=== PATIENT | male | born 1985 | race Caucasian/White ===

== ENCOUNTER 2020-08-03 07:56 | Day surgery (SDC) | payer OTHER, SELFPAY ==
[2020-07-20 12:21] VITALS: BMI 29.0
[2020-08-03] VITALS (10 sets, daily range): BP systolic 115–135; BP diastolic 60–88; PULSE 77–100; RESP 16; TEMP 36.6–37.3; O2SAT 92–99; BMI 28.1
--- NOTE | 2020-08-03 07:00 | HP_ITS ---
Intake Vital Signs 07/20/20 Height 5 ft 11 in 07/20/20 Weight: 208 lb 07/20/20 BMI 29.0 07/20/20 BP 122/83 H 07/20/20 Blood Pressure Location Rt brachial 07/20/20 Position Sitting 07/20/20 Respiration 14 07/20/20 Pulse 98 07/20/20 Pulse Source Monitor 07/20/20 Temp 98.4 F 07/20/20 Temp Source Temporal 07/20/20 Pulse Oximetry (%) 100 07/20/20 Oxygen Delivery Method room air Intake Visit Reasons: Hernia [employer] Required: No Is patient in pain?: No (on and off- Right inguinal area) Allergies Penicillins Allergy (Intermediate, Verified 07/20/20 12:23) breathing Medications NK 07/20/20 [History Confirmed 07/20/20] PFSH Medical History Abdominal pain (Acute) Nausea (Acute) Right lower quadrant pain (Acute) Reducible inguinal hernia (Acute) Pruritic dermatitis (Acute) Poison vivian dermatitis (Acute) Surgical History [place] teeth extracted (Acute) Family History Other Cancer Hypertension Social History (Updated 07/20/20 @ 12:[address] Freddie Myles MD) Smoking Status: Never smoker second hand exposure: No alcohol intake: never substance use type: does not use well-balanced diet: about half the time caffeine: Yes during the past year weight has: remained stable what type of physical activity do you participate in: bicycling, weight training frequency: 5-6 times per week duration: 45-60 minutes/day HPI HPI HPI: LETHA GUEVARA, is a 35 M who presents to the office today for HPI HPI Surgical H&P: Yes HPI: LETHA GUEVARA, is a 35 M who presents to the office today for right groin bulging. The patient notes that he has had right groin bulging and discomfort especially with working out. The patient reports is been there for several months but is starting to get worse. The patient is not having any symptoms on the opposite side. He denies any nausea or vomiting. He has no fevers or chills or radiation of pain. ROS General General: No weight change, appetite, fatigue, colon cancer, breast cancer or weakness HEENT HEENT: No difficulty swallowing, eye injury, eye surgery, swollen glands or hoarseness Endo Endocrine: No thyroid disease, diabetes mellitus, thyroid cancer, Hair loss, heat intolerance or cold intolerance Skin Skin: No rash or changing moles Breast Breast: No left breast lump, right breast lump, nipple discharge, breast pain, abnormal mammogram, abnormal US or breast enlargement Musc Musculoskeletal: No back problems, arthritis, rheumatoid arthritis, gout or joint pain Cardio Cardiovascular: No murmur, pacemaker, heart disease, atrial fibrillation, high blood pressure, heart attack, heart stent, palpitations, shortness of breat with exertion or chest pain Psych Psychiatric: No depression, anxiety or hearing voices Resp Respiratory: No shortness of breath, No sleep apnea, No cough, No COPD, No asthma, No emphysema, No wheezing Gastro Gastrointestinal: Yes abdominal pain, Yes nausea or vomiting, No diarrhea, No constipation, No blood in stool, No acid reflux, No hemorrhoids, No ulcers, No gallbladder problem, No black,tarry stools Srinivasa Hematologic: No blood thinners, No blood disorders, No bleeding, No anemia, No blood clots Neuro Neurologic: No system reviewed and no additional complaints, except as docu, No as per HPI, No abnormal walking, No abnormal hearing, No abnormal movements, No abnormal speech, No behavioral changes, No burning sensations, No confusion, No seizure-like activity, No unsteadiness, No dizziness, No localized weakness, No frequent falls, No headache(s), No lack of coordination, No loss of vision, No memory loss, No numbness, No other visual disturbances, No radiating pain, No restless legs, No sensory deficit, No fainting, No tingling, No tremor(s), No weakness, No other Exam Const General: cooperative Orientation: alert, oriented x3 Chest Breast Palpation: No nipple discharge Resp Effort & Inspection: normal respiratory effort Auscultation: clear to auscultation bilaterally Cardio Rate: regular rate Rhythm: regular rhythm Heart Sounds: no murmurs GI Inspection: non-distended Palpation: soft, hernia indirect inguinal on the right, nontender Assessment & Plan Problems 1. Right inguinal hernia K40.90 Plan The patient has a reducible right inguinal hernia. I was not able to palpate a hernia on the opposite side. I discussed conservative treatment versus surgical treatment and I discussed open versus laparoscopic repair with him in detail. I discussed the risks of the procedure including not limited to bleeding, infection, injury to underlying bowel or spermatic cord, chronic groin pain, hernia recurrence and mesh placement. The patient had all of his questions answered and decided on a robotic assisted laparoscopic right inguinal hernia repair with mesh. The patient would like contralateral hernia fixed if it is present. Freddie Myles MD Pager: [facility] [address] [place] [address], [address] [place] [address] Office: Coding Level of Care Code Off vis,new,level 3 Diagnoses Right inguinal hernia K40.90 I have re-examined the patient. There are no clinical changes since date of exam.
[2020-08-03] MEDS: Lactated Ringers 1,000 ML 100 ML IV ×2 (08:46→11:15)
[2020-08-03] MEDS: Bupivacaine Mpf 0.5% 30 ML VIAL (11:20)
--- NOTE | 2020-08-03 11:27 | PCM.OPRPT ---
Problem List (1) Bilateral inguinal hernia Status: Acute Qualifiers: Obstruction and gangrene presence: without obstruction or gangrene Recurrence: non-recurrent Qualified Code(s): K40.20 - Bilateral inguinal hernia, without obstruction or gangrene, not specified as recurrent Report of Operation Date of Procedure: 08/03/20 Pre-Operative Diagnosis: Right inguinal hernia Post-Operative Diagnosis: Bilateral direct inguinal hernias Surgery/Procedure Performed:: Robotic assisted laparoscopic bilateral inguinal hernia repair with mesh Specimen's removed: None Description of Procedure: Patient was brought back to the operating room and general anesthesia was induced. The abdomen was prepped and draped in usual sterile fashion. A midline incision was made superior to the umbilicus and the fascia was grasped and elevated. A Veress needle was placed into the abdomen and a drop test was performed. The abdomen was insufflated to 15 mmHg. The needle was removed and a port was placed into the abdomen. The camera was placed inside and there were no injuries from entry. The inguinal areas were inspected and the patient had bilateral direct inguinal hernias. Next under direct visualization an 8 mm port was placed in the right abdominal sidewall as well as left abdominal sidewall. The patient was placed in Trendelenburg position and the robot was docked. An incision was made in the peritoneum using electrocautery scissors and the dissection was carried inferiorly until the hernia sac was identified and reduced. There was no indirect hernia or lipoma of the cord evident. The dissection was carried posteriorly until there was good overlap from the hernia. Next a progrip mesh was trimmed and placed into the right groin. It was unfolded over the hernia allowing for good overlap. The peritoneum was reapproximated using a running 3-0V lock suture. The peritoneum completely cover the mesh. Next attention was paid to the left inguinal region. In the same fashion an incision was made in the peritoneum in this was dissected inferiorly until the hernia sac was reduced and peritoneum was fully mobilized. The dissection was carried inferiorly and then a piece of ProGrip mesh was trimmed and placed in the left inguinal region. It was sutured to the pubic tubercle using 3-0 Vicryl suture. The peritoneum was then reapproximated using a running 3-0V lock suture completely covering the mesh. Both inguinal regions were inspected and there was good hemostasis in both region and both pieces of mesh were completely covered. The robot was then undocked and the ports were removed allowing the area to desufflate from the abdomen. The incisions were injected with local anesthetic and closed with interrupted 4-0 Monocryl sutures as well as Steri-Strips and bandages. The scrotum was checked and both testicles are present. The patient was awoken and taken to PACU in stable patient tolerated the procedure well. Grafts/Implants Used: Progrip mesh bilaterally - Admit VTE Documentation VTE Mechan Device Prophylaxis: SCD's
--- NOTE | 2020-08-03 11:34 | DCINST_ITS ---
Discharge Diet: Light diet - advance as tolerated Discharge Activity: Return to Normal Activity, May Not Drive - for 2-3 days or while taking narcotic pain meds., May Shower - with the bandage in place 1-2 days after surgery. Lifting Restrictions: 20 pounds for 4 weeks. Additional Activity Instructions:: Climbing stairs is fine, walking is encouraged. Sitting in bed may be uncomfortable. Sitting up using your lateral muscles (sitting up sideways) is usually more comfortable. Do not drive, work heavy equipment of sign legal documents for 24 hours. If your hernia repair was an ingunial repair, you may have scrotal swelling, an ice pack and/or athletic support can provide more comfort. Pain medications may cause nausea, you should typically eat light foods as you take your pain medications. Pain medications may also cause constipation. If you have difficulty with this, discuss with your doctor. Call your doctor if your incision/area has: Continuous Slow Oozing, Sudden Increased Bleeding, Increased Pain/ Swelling, Increased Redness, Foul Smelling Discharge Call your doctor if you observe: Fever of 101 or Higher Suture Line Care: Avoid Pulling/Pushing, Avoid Pinching/Bending Change Dressing in (Days):: 3 - Leave steri-strips for 1 week. May protect with a guaze bandaid. Cleanse incision/area with: Keep Dressing Clean & Dry Allergies/Adverse Reactions: Allergies Penicillins Allergy (Intermediate, Verified 07/28/20 08:03) breathing Medications to take at Discharge Acetaminophen [Tylenol] 325 mg PO Q6H PRN PRN 07/28/20 Oxycodone HCl/Acetaminophen [Percocet 5-325 mg Tablet] 1 - 2 tab PO Q6H PRN PRN 5 Days #15 tablet 08/03/20 The following prescriptions were given: Oxycodone HCl/Acetaminophen [Percocet 5-325 mg Tablet] 1 - 2 tab PO Q6H PRN PRN 5 Days #15 tablet PRN Reason: Pain Score 4-10/10 Transmission Status: Sent to [facility] Primary Care Physician: Care Physician,No Primary [Primary Care Provider] - Test Results: Test results from this visit will be discussed in further detail at your follow- up appointment, if applicable. Please Follow Up With: Freddie Myles MD When: Please call to schedule 2 week follow up appointment. [phone]
[2020-08-03] MEDS: oxyCODONE 5 MG Tablet PO (13:45)
[2020-08-03] MEDS: Acetaminophen 325 MG Tablet PO (13:45)
== END 2020-08-03 15:59 | disposition home or self-care (01) ==
LOC: SDC 07:56 → AC 07:57
PROVIDERS: Referring Provider Surgery; Visit Provider Surgery
PROC: (CPT 49650; principal; 2020-08-03 09:10)
DX: K40.20 Bilateral inguinal hernia, without obstruction or gangrene, not specified as recurrent (principal); Z20.828 Contact with and (suspected) exposure to other viral communicable diseases
CPT/HCPCS: 00840; 49650; S2900; 87426; C9803; J7120; J2405